=== PATIENT | female | born 1980 | race Caucasian/White ===

== ENCOUNTER 2025-05-24 17:58 | Emergency (ER) | payer SELFPAY ==
[~2025-05-24] VITALS: Ht 165.1 cm; Wt 131.0 kg
[2025-05-24 18:00] VITALS: O2SAT 99
[2025-05-24] MEDS: VISCOUS LIDOCAINE 2% 15 ML UDC MM STA (18:50)
[2025-05-24] MEDS ORDERED: IBUP-2437 MT (20:17)
[2025-05-24 20:35] VITALS: BP 139/84; PULSE 63; RESP 14; TEMP 36.3
== END 2025-05-24 21:35 | disposition home or self-care (01) ==
LOC: ER 17:58
DX: M25.562 Pain in left knee (principal); F45.8 Other somatoform disorders; Z85.42 Personal history of malignant neoplasm of other parts of uterus
CPT/HCPCS: 71045; 73560; 99284